=== PATIENT | female | born 1955 | race Caucasian/White ===

== ENCOUNTER 2025-05-16 11:00 | Emergency (ER) | payer SELFPAY ==
[2025-05-16 11:06] VITALS: BP 163/71
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
== END 2025-05-16 17:09 | disposition home or self-care (01) ==
LOC: EMR 11:00
PROVIDERS: EMERGENCY PHYSICIAN Emergency Medicine; FAMILY PHYSICIAN Internal Medicine
DX: M54.2 Cervicalgia (principal); R07.9 Chest pain, unspecified; R51.9 Headache, unspecified; V43.52XA Car driver injured in collision with other type car in traffic accident, initial encounter; Z87.891 Personal history of nicotine dependence; I10 Essential (primary) hypertension
CPT/HCPCS: 99285; 70450; 72125; 93005